=== PATIENT | male | born 1955 | race Caucasian/White ===

== ENCOUNTER → 2021-05-27 07:09 | Outpatient (CLI) | payer OTHER, SELFPAY ==
[2021-05-27 07:35] LABS: Hematocrit 48.2 % (40-54); Hemoglobin 15.9 g/dL (13.0-16.5); Mean Corpuscular Hgb 30.3 pg (27.0-32.0); Mean Corpuscular Volume 91.8 fL (80-94); Mean Platelet Vol. 8.9 fl (6.2-12.0); Platelet Count 354 K/mm3 (150-450); RBC Distribution Width CV 15.2 % (11.6-14.6); RBC Distribution Width SD 51.9 fl (35.1-43.9); Red Blood Count 5.25 M/mm3 (4.6-6.2); Scan Indicated on CBC? Y/N NO; White Blood Count 6.9 K/mm3 (4.4-11.0)
[2021-05-27 08:02] LABS: Vitamin B12 797 pg/mL (211-911)
[2021-05-27 08:17] LABS: ALB/GLOB Ratio 0.7 RATIO (0.9-2.4); AST(SGOT) 27 U/L (15-37); Alanine Aminotransfer ALT/SGPT 46 U/L (16-61); Albumin, Serum 3.4 g/dL (3.2-5.0); Alkaline Phosphatase 85 U/L (45-117); Anion Gap 6 (5-15); BUN 11 mg/dL (7-18); BUN/Creat Ratio 11.6 RATIO (10-20); Calcium,Total 8.9 mg/dL (8.5-10.1); Chloride 104 mmol/L (98-107); Creatinine, Serum 0.95 mg/dL (0.70-1.30); EST Glomerular Filtration Rate 85 mL/min (>60); Est Glom Filt Rate - Afr Amer 102 mL/min (>60); Globulin 4.9 g/dL (2.2-4.2); Glucose 106 mg/dL (74-106); Potassium 4.1 mmol/L (3.5-5.1); Protein, Total 8.3 g/dL (6.4-8.2); Sodium Level 140 mmol/L (136-145)
[2021-05-31 07:41] LABS: Vitamin B1, Thiamine 142.5 nmol/L (66.5-200.0)
== END ==
PROVIDERS: PCP Family Medicine; Referring Provider Psychiatry & Neurology Neurology; Visit Provider Psychiatry & Neurology Neurology
DX: S06.2X9A Diffuse traumatic brain injury with loss of consciousness of unspecified duration, initial encounter (principal); X58.XXXA Exposure to other specified factors, initial encounter; F02.81 Dementia in other diseases classified elsewhere, unspecified severity, with behavioral disturbance; F07.0 Personality change due to known physiological condition
CPT/HCPCS: 36415; 80053; 82607; 82746; 84425; 84443; 85027

== ENCOUNTER → 2021-05-28 06:00 | Outpatient (CLI) | payer OTHER, SELFPAY ==
--- NOTE | 2021-05-28 07:48 | TELEMED_ITS ---
[facility] has confirmed receipt of a request for visit. This document confirms receipt of the order initiating the consult. To find the results of the consultation, please view the patient's reports for the scanned Telemed Consult.
== END ==
PROVIDERS: PCP Family Medicine; Referring Provider Psychiatry & Neurology Neurology; Visit Provider Psychiatry & Neurology Neurology
DX: S06.2X9A Diffuse traumatic brain injury with loss of consciousness of unspecified duration, initial encounter (principal); X58.XXXA Exposure to other specified factors, initial encounter; F02.81 Dementia in other diseases classified elsewhere, unspecified severity, with behavioral disturbance; F07.0 Personality change due to known physiological condition; H54.42A5 Blindness left eye category 5, normal vision right eye
CPT/HCPCS: 95819

== ENCOUNTER → 2021-06-06 16:01 | Outpatient (CLI) | payer OTHER, SELFPAY ==
--- NOTE | 2021-06-06 16:04 | MRI_ITS ---
EXAM: MR HEAD WITHOUT AND WITH INTRAVENOUS CONTRAST CLINICAL INDICATION: TBI, SHORT TERM MEMORY ISSUES LAZAR TECHNIQUE: Multiplanar and multisequence MR images of the brain were obtained without and with intravenous contrast. This report was created using [employer] report [employer] technology. CONTRAST: IV DOTAREM 20 CC COMPARISON: CT head 08/27/2019 FINDINGS: BRAIN AND EXTRA-AXIAL SPACES: Encephalomalacia of the left frontal lobe, left temporal lobe, and left parietal lobe. No intra- or extra-axial hemorrhage. No evidence of acute infarct. No intracranial mass or mass effect. There is preservation of the santo/white matter interface. Posterior fossa structures are unremarkable. Ventricles are appropriate for age. No hydrocephalus. Basal cisterns are patent. SELLA: Unremarkable. Normal sella turcica, pituitary gland, infundibular stalk, optic chiasm and hypothalamus. AUDITORY SYSTEM: Unremarkable. The internal auditory canals are patent. BONES/JOINTS: There is a left craniotomy/craniectomy. No discrete lytic or blastic abnormalities. SINUSES: Frontal sinus disease. Ethmoid sinus disease. MASTOID AIR CELLS: Unremarkable as visualized. Clear. ORBITS: Unremarkable as visualized. Both globes, extraocular muscles, optic nerves and retrobulbar fat appear unremarkable. VASCULATURE: Unremarkable as visualized. Normal flow voids in the major intracranial circulation. MRI/Brain W/WO Contrast IMPRESSION: No acute findings in the head/brain. Electronically Signed: Singh Garrett MD at 17:59 EDT , Service support ,
== END ==
PROVIDERS: PCP Family Medicine; Visit Provider Psychiatry & Neurology Neurology
DX: S06.2X9A Diffuse traumatic brain injury with loss of consciousness of unspecified duration, initial encounter (principal); X58.XXXA Exposure to other specified factors, initial encounter; F02.81 Dementia in other diseases classified elsewhere, unspecified severity, with behavioral disturbance; F07.0 Personality change due to known physiological condition
CPT/HCPCS: 70553; A9575

== ENCOUNTER → 2021-12-19 | Outpatient (CLI) | payer OTHER, SELFPAY | END | disposition home or self-care (01) | LOC: SL 20:02 | PROVIDERS: PCP Family Medicine; Visit Provider Psychiatry & Neurology Neurology | DX: G47.10 Hypersomnia, unspecified (principal); S06.2X9A Diffuse traumatic brain injury with loss of consciousness of unspecified duration, initial encounter; X58.XXXA Exposure to other specified factors, initial encounter | CPT/HCPCS: 95810 ==

== ENCOUNTER → 2022-02-18 | Outpatient (CLI) | payer OTHER, SELFPAY | END | disposition home or self-care (01) | LOC: SL 21:41 | PROVIDERS: PCP Family Medicine; Referring Provider Nurse Practitioner Acute Care; Visit Provider Nurse Practitioner Acute Care | DX: G47.33 Obstructive sleep apnea (adult) (pediatric) (principal) | CPT/HCPCS: 95811 ==

== ENCOUNTER → 2022-05-07 | Outpatient (CLI) | payer SELFPAY | END | disposition home or self-care (01) | LOC: SL 07:46 | PROVIDERS: PCP Family Medicine; Visit Provider Nurse Practitioner Acute Care | DX: R69 Illness, unspecified (principal) ==

== ENCOUNTER → 2024-03-13 | Outpatient (CLI) | payer OTHER, SELFPAY ==
[2024-03-13 17:46] LABS: Hematocrit 42.6 % (40-54); Hemoglobin 13.9 g/dL (13.0-16.5); Mean Corp Hgb Conc 32.6 g/dL (32-36); Mean Corpuscular Hgb 30.5 pg (27.0-32.0); Mean Corpuscular Volume 93.6 fL (80-94); Mean Platelet Vol. 9.7 fl (6.2-12.0); Platelet Count 336 K/mm3 (150-450); RBC Distribution Width CV 15.5 % (11.6-14.6); RBC Distribution Width SD 53.6 fl (35.1-43.9); Red Blood Count 4.55 M/mm3 (4.6-6.2); White Blood Count 7.7 K/mm3 (4.4-11.0)
[2024-03-13 18:04] LABS: ALB/GLOB Ratio 0.9 RATIO (0.9-2.4); AST(SGOT) 19 U/L (15-37); Alanine Aminotransfer ALT/SGPT 33 U/L (16-61); Albumin, Serum 3.5 g/dL (3.2-5.0); Alkaline Phosphatase 78 U/L (45-117); Anion Gap 6 (5-15); BUN 16 mg/dL (7-18); BUN/Creat Ratio 18.7 RATIO (10-20); Calcium,Total 8.9 mg/dL (8.5-10.1); Chloride 107 mmol/L (98-107); Creatinine, Serum 0.86 mg/dL (0.70-1.30); EST Glomerular Filtration Rate 95 mL/min (>60); Est Glom Filt Rate - Afr Amer 114 mL/min (>60); Globulin 4.1 g/dL (2.2-4.2); Glucose 101 mg/dL (74-106); Potassium 3.9 mmol/L (3.5-5.1); Protein, Total 7.6 g/dL (6.4-8.2); Sodium Level 141 mmol/L (136-145)
== END | disposition home or self-care (01) ==
LOC: MTLAB 15:56
PROVIDERS: PCP Family Medicine; Referring Provider Psychiatry & Neurology Neurology; Visit Provider Psychiatry & Neurology Neurology
DX: S06.2X9A Diffuse traumatic brain injury with loss of consciousness of unspecified duration, initial encounter (principal)
CPT/HCPCS: 36415; 80053; 85027

== ENCOUNTER → 2024-04-12 | Outpatient (REF) | payer OTHER, SELFPAY ==
[2024-04-12 09:49] LABS: Hematocrit 42.8 % (40-54); Hemoglobin 13.8 g/dL (13.0-16.5); Mean Corp Hgb Conc 32.2 g/dL (32-36); Mean Corpuscular Hgb 30.7 pg (27.0-32.0); Mean Corpuscular Volume 95.1 fL (80-94); Mean Platelet Vol. 9.8 fl (6.2-12.0); Platelet Count 305 K/mm3 (150-450); RBC Distribution Width CV 15.2 % (11.6-14.6); RBC Distribution Width SD 53.6 fl (35.1-43.9); White Blood Count 7.2 K/mm3 (4.4-11.0)
[2024-04-12 10:36] LABS: Anion Gap 7 (5-15); BUN 11 mg/dL (7-18); BUN/Creat Ratio 11.8 RATIO (10-20); Calcium,Total 9.2 mg/dL (8.5-10.1); Chloride 108 mmol/L (98-107); Creatinine, Serum 0.94 mg/dL (0.70-1.30); EST Glomerular Filtration Rate 86 mL/min (>60); Est Glom Filt Rate - Afr Amer 103 mL/min (>60); Glucose 106 mg/dL (74-106); Potassium 4.2 mmol/L (3.5-5.1); Sodium Level 142 mmol/L (136-145)
== END ==
LOC: OLS.SANC 05:30
PROVIDERS: PCP Family Medicine; Visit Provider Internal Medicine
DX: E78.00 Pure hypercholesterolemia, unspecified (principal); S06.2X9S Diffuse traumatic brain injury with loss of consciousness of unspecified duration, sequela
CPT/HCPCS: 36415; 80048; 85027

== ENCOUNTER → 2024-05-10 | Outpatient (REF) | payer OTHER, SELFPAY ==
[2024-05-10 08:45] LABS: Hematocrit 44.9 % (40-54); Hemoglobin 14.7 g/dL (13.0-16.5); Mean Corp Hgb Conc 32.7 g/dL (32-36); Mean Corpuscular Hgb 30.6 pg (27.0-32.0); Mean Corpuscular Volume 93.5 fL (80-94); Mean Platelet Vol. 9.2 fl (6.2-12.0); Platelet Count 313 K/mm3 (150-450); RBC Distribution Width CV 14.6 % (11.6-14.6); RBC Distribution Width SD 50.8 fl (35.1-43.9); White Blood Count 6.8 K/mm3 (4.4-11.0)
[2024-05-10 09:04] LABS: Vitamin B12 739 pg/mL (211-911); Vitamin D,25 Hydroxy 19.1 ng/mL
[2024-05-10 09:14] LABS: Cholesterol 256 mg/dL (200); High Density Lipoprotein 72 mg/dL; Triglycerides 137 mg/dL; Very Low Density Lipoprotein 27 mg/dL (5-40)
== END ==
LOC: OLS.SANC 05:00
PROVIDERS: PCP Family Medicine; Visit Provider Internal Medicine
DX: F03.90 Unspecified dementia, unspecified severity, without behavioral disturbance, psychotic disturbance, mood disturbance, and anxiety (principal); S06.2X9S Diffuse traumatic brain injury with loss of consciousness of unspecified duration, sequela
CPT/HCPCS: 36415; 80061; 82306; 82607; 82746; 84443; 85027

== ENCOUNTER → 2024-07-12 05:00 | Outpatient (REF) | payer OTHER, SELFPAY ==
[2024-07-12 08:30] LABS: Hematocrit 43.1 % (40-54); Hemoglobin 14.5 g/dL (13.0-16.5); Mean Corp Hgb Conc 33.6 g/dL (32-36); Mean Corpuscular Volume 92.3 fL (80-94); Mean Platelet Vol. 9.3 fl (6.2-12.0); Platelet Count 256 K/mm3 (150-450); RBC Distribution Width CV 14.6 % (11.6-14.6); RBC Distribution Width SD 49.7 fl (35.1-43.9); Red Blood Count 4.67 M/mm3 (4.6-6.2); White Blood Count 6.8 K/mm3 (4.4-11.0)
[2024-07-12 08:46] LABS: Anion Gap 2 (5-15); BUN 11 mg/dL (7-18); BUN/Creat Ratio 10.3 RATIO (10-20); Calcium,Total 9.7 mg/dL (8.5-10.1); Chloride 108 mmol/L (98-107); Creatinine, Serum 1.07 mg/dL (0.70-1.30); EST Glomerular Filtration Rate 73 mL/min (>60); Est Glom Filt Rate - Afr Amer 89 mL/min (>60); Glucose 100 mg/dL (74-106); Potassium 4.2 mmol/L (3.5-5.1); Sodium Level 141 mmol/L (136-145)
== END ==
LOC: OLS.SANC 05:00
PROVIDERS: PCP Family Medicine; Visit Provider Internal Medicine
DX: Z79.899 Other long term (current) drug therapy (principal)
CPT/HCPCS: 36415; 80048; 85027

== ENCOUNTER → 2025-01-01 05:00 | Outpatient (REF) | payer OTHER, SELFPAY ==
[2025-01-01 09:43] LABS: Cholesterol 230 mg/dL (<=200); High Density Lipoprotein 58 mg/dL; Low Density Lipoprotein Calc. 136 mg/dL; Triglycerides 180 mg/dL; Very Low Density Lipoprotein 36 mg/dL (5-40); cholesterol:hdl ratio screen 3.95
== END ==
LOC: OLS.SANC 05:00
PROVIDERS: PCP Family Medicine; Visit Provider Internal Medicine
DX: E78.00 Pure hypercholesterolemia, unspecified (principal); F03.90 Unspecified dementia, unspecified severity, without behavioral disturbance, psychotic disturbance, mood disturbance, and anxiety
CPT/HCPCS: 36415; 80061

== ENCOUNTER → 2025-04-20 | Outpatient (REF) | payer OTHER, SELFPAY ==
[2025-04-20 08:34] LABS: Hematocrit 43.6 % (40-54); Hemoglobin 14.7 g/dL (13.0-16.5); Immature Granulocytes Count 0.020 X10^3/uL (0.0-0.0); Mean Corp Hgb Conc 33.7 g/dL (32-36); Mean Corpuscular Volume 91.6 fL (80-94); Mean Platelet Vol. 9.6 fl (6.2-12.0); NRBC Flagged by Analyzer 0 % (0-5); Platelet Count 281 K/mm3 (150-450); RBC Distribution Width CV 15.3 % (11.6-14.6); RBC Distribution Width SD 51.9 fl (35.1-43.9); Red Blood Count 4.76 M/mm3 (4.6-6.2); White Blood Count 6.8 K/mm3 (4.4-11.0)
[2025-04-20 08:48] LABS: Anion Gap 10 (5-15); BUN 11 mg/dL (4-19); BUN/Creat Ratio 13.7 RATIO (10-20); Calcium,Total 9.1 mg/dL (7.6-11.0); Carbon Dioxide 24.4 mmol/L (21.0-32.0); Chloride 106 mmol/L (98-108); Cholesterol 226 mg/dL (<=200); Glucose 96 mg/dL (70-99); Low Density Lipoprotein Calc. 137 mg/dL; Potassium 4.2 mmol/L (3.3-5.1); Triglycerides 96 mg/dL; Very Low Density Lipoprotein 19 mg/dL (5-40); cholesterol:hdl ratio screen 3.24
== END ==
LOC: OLS.SANC 05:00
PROVIDERS: PCP Family Medicine
DX: E78.00 Pure hypercholesterolemia, unspecified (principal)
CPT/HCPCS: 36415; 80048; 80061; 85025